=== PATIENT | female | born 1960 | race Two or more races ===

== ENCOUNTER 2023-04-03 09:55 | Outpatient (AMB) | payer OTHER, SELFPAY ==
--- NOTE | 2023-04-03 10:12 | A.OFFVIS_ITS ---
Intake Vital Signs 04/03/23 10:13 Height 5 ft 8 in Weight 237 lb 2 oz BMI 36.1 BP 124/80 Blood Pressure Location Rt brachial Position Sitting Pulse 63 Pulse Source Pulse Oximeter Intake Visit Reasons: Hypertension Medicaid Analyst Required: Yes Medicaid Analyst Name: Cierra [id number] Accompanied by: Self / Same As Patient Allergies No Known Allergies Allergy (Verified 04/03/23 10:07) HPI HPI Comments History of Present Illness Details I had the privilege of seeing kim in follow-up of her history hypertension as well as nephrolithiasis. She has been having ongoing headaches, which has been extensively investigated and follow-up by neurologist in [facility]. She still finds no relief and is frustrated with her ongoing headaches. she was given prednisone which she claims to have caused weight gain. She denies any hematuria, dysuria, flank pain, passage of grit or gravel in the urine. She is not on any hydrochlorothiazide. she tries to maintain herself well hydrated, keep a low-sodium diet. She denies any shortness of breath, chest pain, proximal nocturnal dyspnea, orthopnea, pedal edema, orthostatic symptoms or any other complaints outside her headache during this office visit. Her renal functions had been normal [facility] Medical History (Updated 04/03/23 @ 10:35 by Ryan Clement MD) Calculus of kidney Essential (primary) hypertension Surgical History (Updated 04/03/23 @ 10:19 by Johanna Dey MA) History of hysterectomy History of hand surgery History of ankle surgery History of appendectomy Family History (Updated 04/03/23 @ 10:20 by Johanna Dey MA) Paternal Aunt Diabetes Hypertension Social History (Updated 04/03/23 @ 10:18 by Johanna Dey MA) Alcohol intake: never Patient Tobacco Use Status: Never used Tobacco Physical Exam Vital Signs: Last Vital Signs Pulse 63 04/03/23 10:13 BP 124/80 04/03/23 10:13 BMI result Body Mass Index 36.1 Const General: comfortable and no acute distress Orientation/consciousness: patient oriented x3 HEENT Head: Yes normocephalic Mouth: Normal oral and palatal mucosa present Eyes EOM: EOMs intact bilaterally Neck Neck: Yes supple Resp Auscultation: clear to auscultation bilaterally Cardio Jugular venous distension: no JVD Rate: regular rate GI Palpation (GI): Soft to palpation Auscultation: normal bowel sounds General: Yes no CVA tenderness Back/Spine/Pelvis Back: no CVA tenderness Skin General skin exam: no rashes or lesions noted Neuro General: patient oriented x3 and moves all extremities Extrem General: Yes no pedal edema Assessment & Plan Assessment & Plan (1) Calculus of kidney: Code(s): N20.0 - Calculus of kidney Plan Kim has history of hypertension as well as nephrolithiasis in the past. She was on hydrochlorothiazide at one point which she has discontinued. Her blood pressure is at goal. She has no urinary symptoms. She tries to maintain a low-sodium diet, hydrate herself well and minimize meat. Her urine output is good. Last imaging studies has not shown any renal calculi. She needs to lose weight. Her headaches are being closely monitored by neurologist in [facility]. I did not make any medication changes today. All her questions and concerns were addressed. Time spent retrieving data, documentation and patient encounter 21 minutes. Follow-up given. Orders: Orders Electrolytes Today N20.0 - Calculus of kidney Calcium Today N20.0 - Calculus of kidney Blood Urea Nitrogen Today N20.0 - Calculus of kidney Creatinine Today N20.0 - Calculus of kidney UA and rflx microscopic Today N20.0 - Calculus of kidney Protein Creatinine Ratio, Ur Today N20.0 - Calculus of kidney Coding Level of Care Code Est Pt Level 3 (28188) Diagnoses Calculus of kidney N20.0
[2023-04-03 10:13] VITALS: BP 124/80; PULSE 63; BMI 36.1
== END 2023-04-03 10:42 | disposition home or self-care (01) ==
PROVIDERS: Visit Provider Internal Medicine Nephrology
DX: N20.0 Calculus of kidney (principal)
CPT/HCPCS: 99213

== ENCOUNTER → 2023-04-03 09:55 | Outpatient (BNVA) | payer OTHER, SELFPAY | PROVIDERS: Visit Provider Internal Medicine Nephrology | DX: I10 Essential (primary) hypertension (principal); N20.0 Calculus of kidney | CPT/HCPCS: 99212 ==

== ENCOUNTER 2023-10-09 09:50 | Outpatient (AMB) | payer OTHER, SELFPAY ==
--- NOTE | 2023-10-09 10:14 | HO.NEPHOV_ITS ---
Vital Signs 10/09/23 10:15 Height 5 ft 8 in Weight 224 lb 4 oz BMI 34.1 BP 120/82 Blood Pressure Location Lt brachial Position Sitting Pulse 68 Pulse Source Pulse Oximeter Pulse Oximetry (%) 97 Oxygen Delivery Method Room Air Intake Visit Reasons: 6M follow up/ Conf Napper Tender Required: No Accompanied by: Self / Same As Patient Allergies No Known Allergies Allergy (Verified 10/09/23 10:16) HPI Comments Details: I had the privilege of seeing kim in follow-up of her history hypertension as well as nephrolithiasis. She has been having ongoing headaches, which has been extensively investigated and follow-up by neurologist in [facility]. She still finds no relief and is frustrated with her ongoing headaches. she was given prednisone which she claims to have caused weight gain. She denies any hematuria, dysuria, flank pain, passage of grit or gravel in the urine. She is not on any hydrochlorothiazide. she tries to maintain herself well hydrated, keep a low-sodium diet. She denies any shortness of breath, chest pain, proximal nocturnal dyspnea, orthopnea, pedal edema, orthostatic symptoms or any other complaints outside her headache during this office visit. Her renal functions had been normal [facility] Medical History (Updated 04/03/23 @ 10:35 by Ryan Clement MD) Calculus of kidney Essential (primary) hypertension Surgical History (Updated 04/03/23 @ 10:19 by Johanna Dey MA) History of hysterectomy History of hand surgery History of ankle surgery History of appendectomy Family History (Updated 04/03/23 @ 10:20 by Johanna Dey MA) Paternal Aunt Diabetes Hypertension Social History (Updated 04/03/23 @ 10:18 by Johanna Dey MA) Alcohol intake: never Patient Tobacco Use Status: Never used Tobacco Physical Exam Vital Signs: Last Vital Signs Pulse 68 10/09/23 10:15 BP 120/82 10/09/23 10:15 Pulse Ox 97 10/09/23 10:15 Oxygen Delivery Method Room Air 10/09/23 10:15 BMI result Body Mass Index 34.1 Const General: comfortable and no acute distress Orientation/consciousness: patient oriented x3 HEENT Head: Yes normocephalic Mouth: Normal oral and palatal mucosa present Eyes EOM: EOMs intact bilaterally Neck Neck: Yes supple Resp Auscultation: clear to auscultation bilaterally Cardio Jugular venous distension: no JVD Rate: regular rate GI Palpation (GI): Soft to palpation Auscultation: normal bowel sounds General: Yes no CVA tenderness Back/Spine/Pelvis Back: no CVA tenderness Skin General skin exam: no rashes or lesions noted Neuro General: patient oriented x3 and moves all extremities Extrem General: Yes no pedal edema Results Reviewed Nephrology Results: No Data to Display Assessment & Plan Assessment & Plan (1) Calculus of kidney: Code(s): N20.0 - Calculus of kidney Category: Medical Plan Kim has history of hypertension as well as nephrolithiasis in the past. She was on hydrochlorothiazide at one point which she has discontinued. Her blood pressure is at goal. She has no urinary symptoms. She tries to maintain a low-sodium diet, hydrate herself well and minimize meat. Her urine output is good. Last imaging studies has not shown any renal calculi. She needs to lose weight. Her headaches are being closely monitored by neurologist in [facility]. I did not make any medication changes today. All her questions and concerns were addressed. Orders: Orders Creatinine Today N20.0 - Calculus of kidney Blood Urea Nitrogen Today N20.0 - Calculus of kidney Electrolytes Today N20.0 - Calculus of kidney Calcium Today N20.0 - Calculus of kidney Coding Level of Care Code Est Pt Level 4 (59055) Diagnoses Calculus of kidney N20.0
[2023-10-09 10:15] VITALS: BP 120/82; PULSE 68; O2SAT 97; BMI 34.1
== END 2023-10-09 10:43 | disposition home or self-care (01) ==
PROVIDERS: PCP Nurse Practitioner Family; Visit Provider Internal Medicine Nephrology
DX: N20.0 Calculus of kidney (principal)
CPT/HCPCS: 99214

== ENCOUNTER → 2023-10-09 09:50 | Outpatient (BNVA) | payer OTHER, SELFPAY | PROVIDERS: Visit Provider Internal Medicine Nephrology ==

== ENCOUNTER 2023-10-09 10:30 | Outpatient (REF) | payer OTHER, SELFPAY ==
[2023-10-09 17:48] LABS: Appearance Urine Clear; Color Urine Yellow; Glucose Urine UA Negative (Negative); Leukocyte Esterase Urine Negative (Negative); Nitrite Urine Negative (Negative); PH 7.5 (5.0-9.0); Specific Gravity - Urine 1.015 (1.005-1.025); Urine Blood Negative (Negative); Urine Ketones Negative (Negative); Urine Protein Negative (Neg-Trace)
[2023-10-09 17:51] LABS: Anion Gap 15 (12-20); Blood Urea Nitrogen 15 mg/dL (9-16); Calcium 9.2 mg/dL (8.4-10.2); Carbon Dioxide 25 mmol/L (22-29); Chloride 107 mmol/L (96-108); Estimated Glomerular Filt Rate > 60; Potassium 3.6 mmol/L (3.3-5.1); Sodium 143 mmol/L (135-145)
[2023-10-09 18:21] LABS: Creatinine Urine 78.53 mg/dL; Total Protein Urine Random 8 mg/dL (<12)
== END 2023-10-09 10:31 | disposition home or self-care (01) ==
LOC: HO.HKASLDS 10:30
PROVIDERS: Visit Provider Internal Medicine Nephrology
DX: N20.0 Calculus of kidney (principal)
CPT/HCPCS: 36415; 80051; 81003; 82310; 82565; 82570; 84156; 84520; 99212

== ENCOUNTER 2024-10-26 14:32 | Outpatient (AMB) | payer OTHER, SELFPAY ==
--- NOTE | 2024-10-26 15:15 | HO.NEPHOV ---
Vital Signs 10/26/24 15:17 Height 5 ft 8 in Weight 228 lb BMI 34.7 BP 133/80 Blood Pressure Location Rt brachial Position Sitting Pulse 75 Pulse Source Pulse Oximeter Pulse Oximetry (%) 98 Oxygen Delivery Method Room Air Intake Visit Reasons: 1yr follow up-Conf Tissue Technician Required: Yes Tissue Technician Name: Jacob [id number] Accompanied by: Self / Same As Patient Allergies No Known Allergies Allergy (Verified 10/26/24 15:19) Do you need a note to return to daycare/school/sports/work: No HPI Comments Details: I had the privilege of seeing andrea in follow-up of her history hypertension as well as nephrolithiasis. She has been having ongoing headaches, which has been extensively investigated and follow-up by neurologist in [facility]. She still finds no relief and is frustrated with her ongoing headaches. she was given prednisone which she claims to have caused weight gain. She denies any hematuria, dysuria, flank pain, passage of grit or gravel in the urine. She is not on any hydrochlorothiazide. she tries to maintain herself well hydrated, keep a low-sodium diet. She denies any shortness of breath, chest pain, proximal nocturnal dyspnea, orthopnea, pedal edema, orthostatic symptoms or any other complaints outside her headache during this office visit. Her renal functions had been normal [facility] Medical History Calculus of kidney Essential (primary) hypertension Surgical History History of hysterectomy History of hand surgery History of ankle surgery History of appendectomy Family History Paternal Aunt Diabetes Hypertension Social History Alcohol intake: never Patient Tobacco Use Status: Never used Tobacco Review of Systems Const All systems reviewed & are unremarkable except as noted in HPI and below Physical Exam Vital Signs: Last Vital Signs Pulse 75 10/26/24 15:17 BP 133/80 10/26/24 15:17 Pulse Ox 98 10/26/24 15:17 Oxygen Delivery Method Room Air 10/26/24 15:17 BMI result Body Mass Index 34.7 Const General: comfortable and no acute distress Orientation/consciousness: patient oriented x3 HEENT Head: Yes normocephalic Mouth: Normal oral and palatal mucosa present Eyes EOM: EOMs intact bilaterally Neck Neck: Yes supple Resp Auscultation: clear to auscultation bilaterally Cardio Jugular venous distension: no JVD Rate: regular rate GI Palpation (GI): Soft to palpation Auscultation: normal bowel sounds General: Yes no CVA tenderness Back/Spine/Pelvis Back: no CVA tenderness Skin General skin exam: no rashes or lesions noted Neuro General: patient oriented x3 and moves all extremities Extrem General: Yes no pedal edema Results Reviewed Nephrology Results: Sodium, (135-145) 143 mmol/L 10/09/23 Potassium, (3.3-5.1) 3.6 mmol/L 10/09/23 Chloride, (96-108) 107 mmol/L 10/09/23 Carbon Dioxide, (22-29) 25 mmol/L 10/09/23 BUN, (9-16) 15 mg/dL 10/09/23 Creatinine, (0.5-1.4) 0.72 mg/dL 10/09/23 Calcium, (8.4-10.2) 9.2 mg/dL 10/09/23 Urine Protein, (Neg-Trace) Negative mg/dL 10/09/23 Urine Creatinine 78.53 mg/dL 10/09/23 Protein/Creatinin Ratio, (<0.2) 0.10 10/09/23 Assessment & Plan Assessment & Plan (1) Calculus of kidney: Code(s): N20.0 - Calculus of kidney Category: Medical Plan Andrea has history of hypertension as well as nephrolithiasis in the past. She was on hydrochlorothiazide at one point which she has discontinued. Her blood pressure is at goal. She has no urinary symptoms. She tries to maintain a low-sodium diet, hydrate herself well and minimize meat. Her urine output is good. Last imaging studies has not shown any renal calculi. She needs to lose weight. Her headaches are being closely monitored by neurologist in [facility]. I did not make any medication changes today. All her questions and concerns were addressed. Orders: Orders Creatinine 1 Year N20.0 - Calculus of kidney Blood Urea Nitrogen 1 Year N20.0 - Calculus of kidney Calcium 1 Year N20.0 - Calculus of kidney Protein Creatinine Ratio, Ur 1 Year N20.0 - Calculus of kidney Electrolytes 1 Year N20.0 - Calculus of kidney UA and rflx microscopic 1 Year N20.0 - Calculus of kidney Coding Level of Care Code Est Pt Level 4 (09465) Diagnoses Calculus of kidney N20.0
[2024-10-26 15:17] VITALS: BP 133/80; PULSE 75; O2SAT 98; BMI 34.7
== END 2024-10-26 15:40 | disposition home or self-care (01) ==
LOC: HO.HKAS 14:33
PROVIDERS: PCP Nurse Practitioner Family; Visit Provider Internal Medicine Nephrology
DX: N20.0 Calculus of kidney (principal)
CPT/HCPCS: 99214

== ENCOUNTER → 2024-10-26 14:32 | Outpatient (BNVA) | payer OTHER, SELFPAY | PROVIDERS: PCP Nurse Practitioner Family; Visit Provider Internal Medicine Nephrology | DX: N20.0 Calculus of kidney (principal) | CPT/HCPCS: 99212 ==

== ENCOUNTER 2024-12-30 11:18 | Outpatient (AMB) | payer MEDICAID, SELFPAY ==
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
--- OUTSIDE RECORDS SUMMARY | 2024-12-28 23:59 | XMS_ITS | Continuity of Care Document ---
Author Organization [facility] Address [address] [place] [address]- Care Team Providers Care Pest Control Applicator Name Role Phone Rosa M RESTAURANT HOURLY TEAM MEMBER, Javier Castanon Primary Care Physicia n Encounter [facility] Date(s): 11/28/24 - 12/28/24 [facility] [address] [place] [id number] Encounter Type: Triage Allergies, Adverse Reactions, Alerts [...] 0 Refills, Maintenance, 11/19/24 4:24:00 PM EDT, [id number], 173, cm, 11/15/24 12:57:00 EDT, Height, 102.7, [...] Maintenance, 07/02/24 12:14:00 PM EST, [id number], 90, TAKE 1 TABLET BY MOUTH EVERY [...] each, 1 Refills, Maintenance, 09/16/24 8:42:00 AMEDT, [facility]/pharmacy #[id number], Partial fill upon patient request if [...] 10:55:00 AM EDT, Route to Pharmacy Electronically, [facility]/pharmacy #[id number], Partial fill upon patient request if [...] Refills, Maintenance, 07/05/24 12:06:00 PM EST, Tablet, [facility]/pharmacy #[id number], Partial fill upon patient request if [...] Refills, Maintenance, 12/16/24 4:37:00 PM EDT, Tablet, [id number], Partial fill uponpatient request if the [...] o user in household: No entered on: 9/18/15 Sex Sex Representation Female (finding) Patient Care team information Care Team Personnel Name: Ryan Clement MD Position: [facility] Renal MD Member Role: Lifetime Consulting Physician Address: [address] [place] [address]- [place] Telecom: Name: Johanna Dey Position: [facility] AMB Nurse Member Role: Lifetime Consulting Physician Name: Javier Mederos NP Position: [facility] PCO Associate Professional Member Role: PCP Address: [address] [place] [address]- Telecom: Care Team Related Persons Name: LEAH MACE Name: FLORIN MACE Insurance Providers Guarantor name: [facility] [employer] [facility] Information #: 1 Payer: [employer] Payer Identifier: BEE Member Number: [id number] Group Number: [id number] Subscriber Identifier: [id number] Relationship to Subscriber: self Coverage Type: MEDICAID Coverage Verification Date: NA Telecom: Address:
--- OUTSIDE RECORDS SUMMARY | 2024-12-30 09:00 | XMS_ITS | Encounter Summary ---
Author Organization [facility] Address [address] [place] [address] Care Team Providers Care Circulation Representative Name Role Phone Bruno Becker MD Primary Care Provider [phone] Reason for Visit * Reason Comments Dental Restorative Encounter Details Date Type Department Care Team ([facility] st Contact Info) Description 12/30/2024 9:00 AM EDT Office Visit [facility] [address] [place] [phone] Mona Kemp, DDS [address] [place] [address] Social History Tobacco Use Types Packs/Day Years Used Date Smoking Tobacco: Never Smokeless Tobacco: Never Alcohol Use Standard Drinks/Week Comments No 0 (1 standard drink = 0.6 oz pur e alcohol) Social Connections Answer Date Recorded Connectedness 0 01/21/2024 Financial Resource Strain Answer Date R ecorded Financial Resource Strain 0 2018 Stress Answer Date Recorded Stress 0 12/26/2018 Physical Activity Answer Date Recorded Physical Activity 0 12/26/2018 Food Insecurity Answer Date Recorded Food 0 01/29/2024 Transportation Needs Answer Date Record ed Transportation 0 12/26/2018 Housing Stability Answer Date Recorded Housing 0 12/26/2018 Safety and Environment Answer Date El rded Safety 0 12/26/2018 Utilities Answer Date Recorded Utilities 0 12/26/2018 Employment Answer Date Recorded Stress 0 01/21/2024 Comments No Sex and Gender Information Value Date Recorded Sex Assigned at Female 03/24/2017 12:33 PM PST Legal Sex Female 11:36 AM PDT Gender Identity Female 03/24/2017 12:33 PM PST Sexual Orientation Straight 03/24/2017 12 :33 PM PST documented as of this encounter Last Filed Vital Signs Vital Sign Reading Time Taken Comments Blood Pressure 144/93 12/30/2024 9:19 AM EDT Pulse 59 12/30/2024 9:19 AM EDT Temperature - - Respiratory Rate - - Oxygen Saturation - - Inhaled Oxygen Concentration - - Weight - - Height - - Body Mass Index - - documented in this encounter Progress Notes * Mona Kemp DDS - 12/30/2024 10:51 AM EDT Restorative Subjective Kim Dennison, 64 year old female, presents alone for restorative. President [place]: No Chief Complaint Patient presents with Dental Restorative Objective RMHx: Yes Vitals: Vitals: 12/30/24 0917 12/30/24 0919 BP: (!) 157/97 (!) 144/93 Pulse: 64 59 BP Site: Left Wrist Left Wrist BP Position: Sitting Sitting BP Cuff Size: Regular Adult Regular Adult Pain Score: 0 - No pain 0 - No pain Assessment Dx: K02.9 Recurrent dental caries extending into dentin (primary encounter diagnosis) Dx Details (Clinical Decision-Making): Tooth# 3 MODL secondary decay Plan Informed Consent/PARQ (Procedure, Alternatives, Risks, Questions): Patient confirms informed consent using PARQ. Dental procedures in this visit D9450 - CASE PRESENTATION SUBS DTL & EXTENSIVE TX PLN (Completed) Service provider: Mona Kemp DDS Billing provider: Mona Kemp DDS D2394 - RESIN COMPOS - FOUR OR MORE SURFACES POSTERIOR 3 MODL (Completed) Service provider: Mona Kemp DDS Billing provider: Mona Kemp DDS Topical Anesthetic: 20% topical benzocaine Local Anesthetic: 1 carpule 2% lidocaine with 1:100k epi Injection administered: Infiltration Isolation used: Cotton roll and Dri-Angle Excavation of caries and old restorative material completed. No pulpal exposure, but very deep and close to pulp, Dycal liner placed, [place] Tribe-lite liner placed Details: Etch, Marlow Shade: A3. Contour/Romanian: Yes Verified occlusion, contacts, and floss Post-Op Information Given: written Referral: No orders of the following type(s) were placed in this encounter: Referral. Rx: No orders of the defined types were placed in this encounter. Behavior: Excellent DA: sharon [place]: Recall Exam - 6 months documented in this encounter Miscellaneous Notes * Patient Instructions - Mona Kemp DDS - 12/30/2024 10:10 AM EDT If you are not able to keep your appointment please call 24-48 hours before your appointment to cancel or reschedule. documented in this encounter Plan of Treatment Upcoming Encounters Date Type Department Care Team (Late st Contact Info) Description 04/18/2025 9:00 AM EST Office Visit [facility] [address] [place] [address] Ry Celeste, [facility] [address] [place] [address] documented as of this encounter Procedures Procedure Name Priority Date/Time Associated Diagnosis Comments CASE PRESENTATION SUBS DTL & EXTENSIVE TX PLN Routine 12/30/2024 9:00 AM EDT Recurrent dental caries extending into dentin 3 MODL RESIN COMPOS - FOUR OR MORE SURFACES POSTERIOR Routine 12/30/2024 9:00 AM EDT Recurrent dental caries extending into dentin documented in this encounter Visit Diagnoses Diagnosis Recurrent dental caries extending into dentin- Primary documented in this encounter Care Teams Circulation Representative Relationship Specialty Start Date End Date Bruno Becker MD [address] [place] [address] PCP - General Internal Medicine 04/03/21 documented as of this encounter
[2024-12-30 11:29] VITALS: BP 130/81; PULSE 59; O2SAT 96; BMI 34.2
--- NOTE | 2024-12-30 11:29 | HO.NEPHOV ---
Vital Signs 12/30/24 11:29 Height 5 ft 8 in Weight 225 lb 2 oz BMI 34.2 BP 130/81 Blood Pressure Location Lt brachial Position Sitting Pulse 59 Pulse Source Pulse Oximeter Pulse Oximetry (%) 96 Oxygen Delivery Method Room Air Intake Visit Reasons: Abnormal labs/ Per Breanna Therapeutic Consultant Required: Yes Therapeutic Consultant Language: Minister Helper Services: Therapeutic Consultant Present Therapeutic Consultant Name: Ted [id number] Information Interpreted: clinical only Accompanied by: Other Relationship Allergies No Known Allergies Allergy (Verified 12/30/24 11:29) HPI Comments Details: I had the privilege of seeing kim in follow-up of her history hypertension as well as nephrolithiasis. She has been having ongoing headaches, which has been extensively investigated and follow-up by neurologist in [facility]. She still finds no relief and is frustrated with her ongoing headaches. she was given prednisone which she claims to have caused weight gain. She denies any hematuria, dysuria, flank pain, passage of grit or gravel in the urine. She is not on any hydrochlorothiazide. she tries to maintain herself well hydrated, keep a low-sodium diet. She denies any shortness of breath, chest pain, proximal nocturnal dyspnea, orthopnea, pedal edema, orthostatic symptoms or any other complaints outside her headache during this office visit. She was recently seen in [facility] for back pain and had undergone CTA. She also had a renal USS for F/U renal cyst. [facility] Medical History Calculus of kidney Essential (primary) hypertension Surgical History History of hysterectomy History of hand surgery History of ankle surgery History of appendectomy Family History Paternal Aunt Diabetes Hypertension Social History Alcohol intake: never Patient Tobacco Use Status: Never used Tobacco Review of Systems Const All systems reviewed & are unremarkable except as noted in HPI and below Physical Exam Vital Signs: Last Vital Signs Pulse 59 12/30/24 11:29 BP 154/100 H 12/30/24 11:29 Pulse Ox 96 12/30/24 11:29 Oxygen Delivery Method Room Air 12/30/24 11:29 BMI result Body Mass Index 34.2 Const General: comfortable and no acute distress Orientation/consciousness: patient oriented x3 HEENT Head: Yes normocephalic Mouth: Normal oral and palatal mucosa present Eyes EOM: EOMs intact bilaterally Neck Neck: Yes supple Resp Auscultation: clear to auscultation bilaterally Cardio Jugular venous distension: no JVD Rate: regular rate GI Palpation (GI): Soft to palpation Auscultation: normal bowel sounds General: Yes no CVA tenderness Back/Spine/Pelvis Back: no CVA tenderness Skin General skin exam: no rashes or lesions noted Neuro General: patient oriented x3 and moves all extremities Extrem General: Yes no pedal edema Assessment & Plan Assessment & Plan (1) Calculus of kidney: Code(s): N20.0 - Calculus of kidney Category: Medical (2) Renal cyst: Code(s): N28.1 - Cyst of kidney, acquired Category: Medical Plan Kim has history of hypertension as well as nephrolithiasis in the past. She was on hydrochlorothiazide at one point which she has discontinued. She needs to avoid NSAID's. She has no urinary symptoms. She tries to maintain a low-sodium diet, hydrate herself well and minimize meat. Her urine output is good. Last imaging studies has not shown any renal calculi. She needs to lose weight. Her headaches are being closely monitored by neurologist in [facility]. Her renal USS results were reviewed. I did not make any medication changes today. All her questions and concerns were addressed. Orders: Orders Blood Urea Nitrogen 6 Months N20.0 - Calculus of kidney, N28.1 - Cyst of kidney, acquired Creatinine 6 Months N20.0 - Calculus of kidney, N28.1 - Cyst of kidney, acquired UA and rflx microscopic 6 Months N20.0 - Calculus of kidney, N28.1 - Cyst of kidney, acquired Electrolytes 6 Months N20.0 - Calculus of kidney, N28.1 - Cyst of kidney, acquired Coding Level of Care Code Est Pt Level 4 (47364) Diagnoses Calculus of kidney N20.0 Renal cyst N28.1
--- OUTSIDE RECORDS SUMMARY | 2024-12-30 12:38 | XMS_ITS | Clinical Summary ---
Author Organization [facility] Address [address] [place] [address] Care Team Providers Care Sweeping Compound Blender Name Role Phone Unavailable Primary Care Provider Unavailabl e Social History Tobacco Use Types Packs/Day Years Used Date Smoking Tobacco: Never Assessed Comments Unknown Sex and Gender Information Value Date Recorded Sex Assigned at Not on file Legal Sex Female 9:12 PM EST Gender Identity Not on file Sexual Orientation Not on file Plan of Treatment Health Maintenance Due Date Last Done Comments Cervical Cancer Screening: Pap Smear 12/10/1980 Pneumococcal Vaccine: 50+ Years (1 of 1 - PCV) 12/10/2009 Zoster Vaccines (1 of 2) 12/10/2009 Hepatitis B Vaccines (3 of 3 - 19+ 3-dose series) 04/29/2013 12/25/2012, 10/28/2012 RSV Immunization Adult Patients (1 - Risk 60-74 years 1-dose series) 2019 Cholesterol Screening (Lipid Panel) 04/06/2022 03/24/2017 Colorectal Cancer Screening: Colonoscopy 04/06/2022 Hepatitis C Screening 04/06/2022 Osteoporosis Screening (Bone Density Screening) 04/06/2022 Social Influencers of Health Screening 04/06/2022 COVID-19 Vaccine ( - season) 2024 Depression Screening 05/05/2024 DTaP,Tdap,and Td Vaccines (4 - Td or Tdap) 10/19/2024 10/19/2014, 09/16/2011, 03/31/1996 Falls Risk Assessment 12/10/2024 Hypertension/CHF/CAD Annual BMP Blood Test 12/21/2024 03/24/2017 Influenza Vaccine (#1) 2025 , 03/09/2020, 02/18/2019, Additional history exists Breast Cancer Screening 01/05/2026 01/06/20 24, 11/07/2022, 11/01/2021, Additional history exists MMR Vaccines Aged Out 05/18/1996, 04/12/1996 No lo nger eligible based on patient's age to complete this topic Hepatitis A Vaccines Aged Out 10/28/2012 No long er eligible based on patient's age to complete this topic HIB Vaccines Aged Out No longer eligi ble based on patient's age to complete this topic HPV Vaccines Aged Out No longer eligi ble based on patient's age to complete this topic IPV Vaccines Aged Out No longer eligi ble based on patient's age to complete this topic Meningococcal ACWY Vaccine Aged Out N o longer eligible based on patient's age to complete this topic Meningococcal B Vaccine Aged Out No l onger eligible based on patient's age to complete this topic RSV Immunization Patients Under 20 months Aged Out No longer eligible based on patient's age to complete this topic Varicella Vaccines Aged Out No longer eligible based on patient's age to complete this topic Procedures Procedure Name Priority Date/Time Associated Diagnosis Comments [facility] SCREENING DIGITAL Routine 01/06/2024 1:47 PM EDT Encounter for screening mammogram for malignant neoplasm of breast from Last 3 Months or Most Recently Relevant to Health Maintenance Results * PANDA SCREENING DIGITAL (01/06/2024 1:47 PM EDT) Anatomical Region Laterality Modality Mammography 01/06/2024 12:4 7 PM EDT Narrative 01/06/2024 1:47 PM EDT [facility] Diagnostic Imaging Department [address] [place] [id number] Patient: MAZINRAMAKIM /Age/Sex: 1960 - 63 - F Unit#: [id number] Location/Status: SPDIMAM/REG CLI Mnemonic/Ordering Site: DIGSC/SPMAM Ordering Physician: JAVIER PALOMARES NP [facility] Screening Digital - 01/06/24 - 1313 Report Status:Signed EXAM: [facility] Screening Digital EXAM DATE AND TIME: 01/06/2024 1:14 PM HISTORY: Screening. Right breast biopsy in 2017, pathology benign. COMPARISON: 11/07/22, 11/01/21, 10/23/20, 10/22/19 TECHNIQUE: Bilateral digital breast tomosynthesis was performed in the CC and MLO projections. Computer aided detection with Fit&Color 3D 3.1 was employed. TISSUE DENSITY: b. There are scattered areas of fibroglandular density. FINDINGS: No suspicious masses, grouped microcalcifications, or areas of architectural distortion are seen. A biopsy marker is again seen in the anterior right breast. The skin and vascularity are unremarkable. IMPRESSION: Stable mammographic appearance of the breasts. No evidence of malignancy is seen. A negative mammogram in the presence of a clinically suspicious palpable abnormality does not preclude the possibility of malignancy or alter the indications for biopsy. BI-RADS: Category 1: Negative RECOMMENDATION(S): 1: Routine screening mammogram BILATERAL in 1 year. Dictating Physician: BRIANNA PARTIDA MD Electronically Signed by: BRIANNA PARTIDA MD Dic Date/Time: 01/06/24 1346 Sign date/Time: 01/06/24 1347 Procedure Note Brianna Partida MD - 02/18/2024 [facility] Diagnostic Imaging Department [address] [place] [address] Patient: KIM DENNISON.O.B./Age/Sex: 1960 - 63 - F Unit#: [id number] Location/Status: [facility]/REG CLI Mnemonic/Ordering Site: [facility] Ordering Physician: JAVIER PALOMARES NP [facility] Screening Digital - 01/06/24 - 1313 Report Status:Signed EXAM: [facility] Screening Digital EXAM DATE AND TIME: 01/06/2024 1:14 PM HISTORY: Screening. Right breast biopsy in 2017, pathology benign. COMPARISON: 11/07/22, 11/01/21, 10/23/20, 10/22/19 TECHNIQUE: Bilateral digital breast tomosynthesis was performed in the CCand MLO projections. Computer aided detection with Fit&Color 3D 3.1was employed. TISSUE DENSITY: b. There are scattered areas of fibroglandular density. FINDINGS: No suspicious masses, grouped microcalcifications, or areas ofarchitectural distortion are seen. A biopsy marker is again seen in the anterior rightbreast. The skin and vascularity are unremarkable. IMPRESSION: Stable mammographic appearance of the breasts. No evidence of malignancyis seen. A negative mammogram in the presence of a clinically suspicious palpable abnormality does not preclude the possibility of malignancy or alter the indications for biopsy. BI-RADS: Category 1: Negative RECOMMENDATION(S): 1: Routine screening mammogram BILATERAL in 1 year. Dictating Physician: BRIANNA PARTIDA MD Electronically Signed by: BRIANNA PARTIDA MD Dic Date/Time: 01/06/24 1346 Sign date/Time: 01/06/24 1347 us Javier Mederos NP IMG BI PROCEDURES Final Res ult from Last 3 Months or Most Recently Relevant to Health Maintenance Advance Directives Documents on File Type Date Recorded Patient Senior Application Programmer Expl anation Health Care Decision (hx) 02/04/2012 AD GARCIA DIRECTIVE Health Care Decision (hx) 02/04/2012 AD GACRIA DIRECTIVE Health Care Decision (hx) 02/04/2012 AD GARCIA DIRECTIVE Health Care Decision (hx) 02/04/2012 AD GARCIA DIRECTIVE Health Care Decision (hx) 02/04/2012 AD GARCIA DIRECTIVE Health Care Decision (hx) 02/04/2012 AD GARCIA DIRECTIVE Health Care Decision (hx) 02/04/2012 AD GARCIA DIRECTIVE Health Care Decision (hx) 02/04/2012 AD GARCIA DIRECTIVE Health Care Decision (hx) 02/04/2012 AD GARCIA DIRECTIVE Health Care Decision (hx) 02/04/2012 AD GARCIA DIRECTIVE Health Care Decision (hx) 02/04/2012 AD GARCIA DIRECTIVE
--- OUTSIDE RECORDS SUMMARY | 2024-12-30 12:38 | XMS_ITS | Encounter Summary ---
Author Organization [facility] Address [address] [place] [address] Care Team Providers Care Wall And Floor Tiler Name Role Phone Bruno Becker MD Primary Care Provider Encounter Details Date Type Department Care Team ([facility] st Contact Info) Description 02/26/2022 Dental Interim Note [facility] [address] [place] [address] Shannon Sanchez DDS [address] [place] [address] Social History Tobacco Use Types Packs/Day Years Used Date Smoking Tobacco: Never Smokeless Tobacco: Never Alcohol Use Standard Drinks/Week Comments No 0 (1 standard drink = 0.6 oz pur e alcohol) Social Connections Answer Date Recorded Social Connections and Isolation 0 12/26/2018 Financial Resource Strain Answer Date R ecorded Financial Resource Strain 0 2018 Stress Answer Date Recorded Stress 0 12/26/2018 Physical Activity Answer Date Recorded Physical Activity 0 12/26/2018 Food Insecurity Answer Date Recorded Food 0 12/26/2018 Transportation Needs Answer Date Record ed Transportation 0 12/26/2018 Housing Stability Answer Date Recorded Housing 0 12/26/2018 Safety and Environment Answer Date El rded Safety 0 12/26/2018 Utilities Answer Date Recorded Utilities 0 12/26/2018 Employment Answer Date Recorded Employment 0 12/26/2018 Comments No Sex and Gender Information Value Date Recorded Sex Assigned at Female 03/24/2017 12:33 PM PST Legal Sex Female 11:36 AM PDT Gender Identity Female 03/24/2017 12:33 PM PST Sexual Orientation Straight 03/24/2017 12 :33 PM PST COVID-19 Exposure Response Date Recorded In the last 10 days, have yo u been in contact with someone who was confirmed or suspected to have Coronavirus/COVID-19? No / Unsure 02/26/2022 1:32 PM EDT documented as of this encounter Plan of Treatment Upcoming Encounters Date Type Department Care Team (Late st Contact Info) Description 04/18/2025 9:00 AM EST Office Visit [facility] [address] [place] [phone] Ry Celeste, [facility] [address] [place] [address] documented as of this encounter Procedures Procedure Name Priority Date/Time Associated Diagnosis Comments 3 MOD AMALGAM - WISDOM (NON BILLABLE) Routine 02/26/2022 12:00 AM EDT 15 DO AMALGAM - WISDOM (NON BILLABLE) Routine 02/26/2022 12:00 AM EDT 19 O AMALGAM - WISDOM (NON BILLABLE) Routine 02/26/2022 12:00 AM EDT 30 O AMALGAM - WISDOM (NON BILLABLE) Routine 02/26/2022 12:00 AM EDT 2 DO AMALGAM - WISDOM (NON BILLABLE) Routine 02/26/2022 12:00 AM EDT documented in this encounter Visit Diagnoses Not on filedocumented in this encounter Care Teams Wall And Floor Tiler Relationship Specialty Start Date End Date Bruno Becker MD [address] [place] [address] PCP - General Internal Medicine 04/03/21 documented as of this encounter
--- OUTSIDE RECORDS SUMMARY | 2024-12-30 12:39 | XMS_ITS | Clinical Summary ---
Author Organization [facility] Address [address] [place] [address] Care Team Providers Care Health And Physical Education Teacher Name Role Phone Bruno Becker MD Primary Care Provider [phone] Source Comments PLEASE NOTE, if this patient is a minor, it may be UNLAWFUL to discuss sensitive information that is contained in these records (such as FAMILY PLANNING, MENTAL HEALTH or SUBSTANCE ABUSE) with the minor patient's parent or other person without the patient's specific authorization.[facility] Allergies No known active allergies Medications FLUoxetine (PROZAC) 20 mg capsuleIndicati ons:Anxiety and depression Take 1 Cap by mouth once daily. PER PSYCH. 03/10/2013 Active LORazepam (ATIVAN) 0.5 mg tabletIndicatio ns:Anxiety and depression Take 1 Tab by mouth once daily as needed for anxiety. PER PSYCH. 03/10/2013 Active QUEtiapine (SEROQUEL) 25 mg tabletIndicatio ns:Insomnia Take 1 Tab by mouth nightly at bedtime. PER PSYCH. 03/10/2013 Active loratadine (CLARITIN) 10 mg tabletIndicatio ns:Allergic rhinitis due to allergen Take 1 Tab by mouth once daily as needed for allergies. 30 Tab 4 06/08/2013 Active fluticasone (FLONASE) 50 mcg/actuation nasal sprayIndication s:Seasonal allergic rhinitis Place 1 [place] into the nostril(s) once daily. 16 g 6 02/28/2014 Active hydrochlorothia zide (MICROZIDE) 12.5 mg capsuleIndicati ons:HTN (hypertension) Take 1 Cap by mouth once daily. 30 Cap 6 02/28/2014 Active ibuprofen (ADVIL,MOTRIN) 800 mg tabletIndicatio ns:Costochondra l chest pain Take 1 Tab by mouth 3 (three) times daily as needed for pain. Take with food. 90 Tab 0 09/01/2014 Active SUPER PAIN RELIEF 250-250-65 mg per tablet TAKE 1 TABLET BY MOUTH EVERY 6 HOURS NEEDED FOR PAIN 30 Tab 0 09/05/2014 Active diclofenac potassium (CATAFLAM) 50 mg tablet Take 1 Tab by mouth 2 (two) times daily. 60 Tab 1 10/17/2014 Active ranitidine (ZANTAC) 150 mg tablet TAKE 1 TABLET BY MOUTH TWICE A DAY 60 Tab 3 01/01/2015 Active cyclobenzaprine (FLEXERIL) 5 mg tabletIndicatio ns:Muscle spasm Take 1 Tablet by mouth 2 (two) times daily as needed for muscle spasms 20 Tablet 08/16/2022 Active chlorhexidine (PERIDEX) 0.12 % solutionIndicat ions:Acute gingivitis, non-plaque induced Swish and spit 15 mL 2 (two) times daily 473 mL 08/16/2022 Active Active Problems Problem Noted Date Diagnosed Date Primary osteoarthritis of right knee 09/08/2018 Overview (09/08/2018): Saw [facility] on 09-01-18 - trial injections. Multinodular goiter 08/25/2014 Overview (09/27/2014): CT chest 08/09/14 revealed Mildly enlarged, nodular thyroid gland, multinodular goiter. Will refer for thyroid US. ultrasound of thyroid done 09/15/14 which revealed borderline thyromegaly, indeterminate thyroid nodules and indeterminate dominate partially calcified right thyroid lobe mass with substernal extension; ultrasound-guided tissue sampling may be considered. Will refer to endo. Microscopic hematuria 07/21/2014 Overview (07/21/2014): F/u urology. 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 Referred CT chest. Chest CT 08/09/14 at [facility] 1. Tiny bilateral pulmonary nodules, all 5 mm or less in diameter, probably benign. Annual screening recommended in 6-12 months. 2. Mildly enlarged, nodular thyroid gland, multinodular goiter. Will refer for thyroid US. Tympanic membrane perforation, left 06/30/2013 Allergic rhinitis due to allergen 10/28/2012 HTN (hypertension) Anxiety and depression Overview (03/10/2013): On psych f/u Insomnia Overview (03/10/2013): On psych f/u GERD (gastroesophageal reflux disease) Encounters Date Type Department Care Team Description 12/30/2024 9:00 AM EDT Office Visit [address] [phone] Mona Kemp DDS 10/14/2024 1:40 PM EDT Office Visit [address] [phone] Ry Celeste RDH from Last 3 Months Immunizations Immunization Administration Dates Next Due Flu, Preservative Free 03/24/2017 HEP A-HEP B (TWINRIX) 10/28/2012 Hep B, Adult/Adol (ECHNPDX-W-VPSON/RECOMBIVAX-AD ULT) 12/25/2012 INFLUENZA, SEASONAL, INJECTABLE 02/28/2014,01/28 INFLUENZA, SEASONAL, INJECTABLE, PRESERVATIVE FR EE 01/18/2013 MMR (MMR II/Priorix) 05/18/1996,04/12/1996 TDAP 09/16/2011 Td (adult),2 Lf tetanus toxo id (TDVAX), preservative free 03/31/1996 Family History Medical History Relation Name Comments Diabetes Father Heart Problems Father Hypertension Father Diabetes Mother Heart Problems Mother Hypertension Mother Stroke Mother Cancer Paternal Aunt BREAST Relation Name Status Comments Father (Age ?) STROKE Mother Alive Paternal Aunt Social History Tobacco Use Types Packs/Day Years [...] Orientation Straight 03/24/2017 12 :33 PM PST Last Filed Vital Signs Vital Sign Reading Time Taken Comments Blood Pressure 144/93 12/30/2024 9:19 AM EDT Pulse 59 12/30/2024 9:19 AM EDT Temperature 36.7 C (98 F) 03/24/2017 1:27 PM EST Respiratory Rate 18 03/24/2017 1:27 PM EST Oxygen Saturation - - Inhaled Oxygen Concentration - - Weight 87.5 kg (193 lb) 03/31/2017 1:31 PM EST Height 170.2 cm (5' 7 ) 03/31/2017 1:31 PM EST Body Mass Index 30.23 03/31/2017 1:31 PM EST Plan of Treatment Upcoming Encounters Date Type Department Care Team (Late st Contact Info) Description 04/18/2025 9:00 AM EST Office Visit [facility] [address] [place] [phone] Ry Celeste, [facility] [address] [place] [address] Health Maintenance Due Date Last Done Comments Anxiety Screening 1960 Depression Monitoring 1960 Tobacco Screening 1959 12/30/2024 CT Colonography 12/10/2004 Colonoscopy 12/10/2004 Fecal DNA 12/10/2004 Flexible Sigmoidoscopy 12/10/2004 Imm-Pneumococcal 50+ (1 of 1 - PCV) 12/10/2009 Imm-Zoster, Recombinant (1 of 2) 12/10/2009 Imm-Hepatitis B (3 of 3 - 19 + 3-dose series) 04/29/2013 12/25/2012, 10/28/2012 Annual Wellness (Adult): Ind icated (All Coverage) 03/24/2018 03/24/2017, 02/28/2014, 06/02/2013, Additional history exists Diabetes Screening 03/24/2018 03/24/2017, 1 , 12/29/2013, Additional history exists Lipid Screening 03/24/2018 03/24/2017 Breast Cancer Screening (Mammogram) 02/19/2019 02/19/2017, 07/04/2014, 06/30/2013 [id number] ( - season) 2024 Alcohol and Drug Screen 05/05/2024 03/24/2017, 09/01 Imm-DTaP/Tdap/Td (3 - Td or Tdap) 10/19/2024 10/19/2014, 09/16/2011, 03/31/1996 Bone Density Screening 12/10/2024 Falls Prevention 12/10/2024 Imm-Influenza (#1) 2025 04/14/2023, 1 06/01/2021, 03/15/2021, Additional history exists Dental BW 10/16/2025 10/14/2024, 12/04, 05/06/2023, Additional history exists Dental Examination 10/16/2025 10/14/2024, 0 12/25/2023, 05/06/2023, Additional history exists Dental Perio Charting 10/16/2025 10/14/2024 Dental Prophy 10/16/2025 10/14/2024, 12/04, 05/06/2023, Additional history exists Colorectal Cancer Screening 02/20/2026 FIT/gFOBT 02/20/2026 02/21/2016 Dental FMX/Pano 06/08/2027 06/06/2022 HIV Screening Completed 03/24/2017 Hepatitis C Screening Completed 03/24/2017 Procedures Procedure Name Priority Date/Time Associated Diagnosis Comments 3 MODL RESIN COMPOS - FOUR OR MORE SURFACES POSTERIOR Routine 12/30/2024 9:00 AM EDT Recurrent dental caries extending into dentin CASE PRESENTATION SUBS DTL & EXTENSIVE TX PLN Routine 12/30/2024 9:00 AM EDT Recurrent dental caries extending into dentin DENTAL CASE MANAGEMENT - MOTIVATIONAL INTV Routine 10/14/2024 1:40 PM EDT Encounter for dental examination PROPHYLAXIS - ADULT Routine 10/14/2024 1 :40 PM EDT Encounter for dental examination BITEWINGS - FOUR RADIOGRAPHIC IMAGES Routine 10/14/2024 1:40 PM EDT Encounter for dental examination COMP PERIODONTAL EVALUATION - NEW/EST PATIENT Routine 10/14/2024 1:40 PM EDT Encounter for dental examination PERIODIC ORAL EVALUATION ESTABLISHED PATIENT Routine 10/14/2024 1:40 PM EDT Encounter for dental examination CARIES RISK ASSESSMENT & DOC FINDING MOD RISK Routine 10/14/2024 1:40 PM EDT Encounter for dental examination NUTRITIONAL COUNSELING CONTROL OF DENTAL DISEASE Routine 10/14/2024 1:40 PM EDT Encounter for dental examination ORAL HYGIENE INSTRUCTIONS Routine 10/14/2024 1:40 PM EDT Encounter for dental examination ORAL CANCER SCREENING Routine 10/14/2024 1:40 PM EDT Encounter for dental examination CASE PRESENTATION SUBS DTL & EXTENSIVE TX PLN Routine 10/14/2024 1:40 PM EDT Encounter for dental examination Full INTRAORAL - COMP SERIES OF RADIOGRAPHIC IMAGES Routine 06/06/2022 1:40 PM EST Gingivitis, chronic, plaque induced ANTIBODY HIV-1&HIV-2 SINGLE RESULT Routine 03/24/2017 2:13 PM EST Risky sexual behavior HEPATITIS A,B,C PANEL Routine 03/24/2017 2:13 PM EST Risky sexual behavior COMPREHENSIVE METABOLIC PANEL Routine 03/24/2017 2:13 PM EST Routine general medical examination at a health care facility LIPID PANEL Routine 03/24/2017 2:13 PM EST Routine general medical examination at a health care facility from Last 3 Months or Most Recently Relevant to Health Maintenance Results * HEPATITIS A,B,C PANEL (03/24/2017 2:13 PM EST) [facility] HEPATITIS B SURFACE ANTIBODY NEGATIVE NEGATIVE [facility] HEPATITIS B SURFACE ANTIGEN NEGATIVE NEGATIVE [facility] Comment: Over the counter supplements containing high doses of biotin may interfere with this assay. If interference is suspected, patients shoud be retested after refraining from biotin supplements for 72 hours. HEPATITIS C VIRUS DIAGNOSTIC NEGATIVE NEGATIVE [facility] HEPATITIS A ANTIBODY TOTAL NEGATIVE NEGATIVE [facility] Comment: Over the counter supplements containing high doses of biotin may interfere with this assay. If interference is suspected, patients shoud be retested after refraining from biotin supplements for 72 hours. HEPATITIS B CORE ANTIBODY NEGATIVE NEGATIVE [facility] Blood specimen (specimen) Blood / Unknown 03/24/2017 2:13 PM EST 03/24/2017 2:24 PM EST Maureen [facility] - 03/24/2017 6:47 PM EST [employer] [address] [place] [address] PT ID [id number] ORD# [id number] [facility] - BLOOD DRAW Edited Result - Final [address] [address], [place] [phone] * HIV-1 & HIV-2 ANTIBODIES (03/24/2017 2:13 PM EST) [facility] HIV 1 AND 2 ANTIBODY SCREEN NEGATIVE NEGATIVE [facility] Comment: This assay is a 4th generation assay allowing for earlier detection of HIV infection by detecting the presence of the HIV-1 p24 antigen as well as the traditional antibodies to HIV type 1 (including group O) and type 2. Use of a 4th generation assay is the current CDC recommendation for HIV screening. Blood specimen (specimen) Blood / Unknown 03/24/2017 2:13 PM EST 03/24/2017 2:24 PM EST Maureen [facility] - 03/24/2017 7:16 PM EST [facility] [employer]™ [address] [place] [id number] [place] ID [id number] ORD# [id number] us [facility] - BLOOD DRAW Final Result [facility] [address] [place] [address], * LIPID PANEL (03/24/2017 2:13 PM EST) CHOLESTEROL 157 0 - 200 mg/dL [facility] TRIGLYCERIDES 131 0 - 150 mg/dL [facility] HDL CHOLESTEROL 51 >40 mg/dL [facility] LDL CALCULATED 80 0 - 100 mg/dL [facility] TC-HDLC RATIO 3.1 0 - 4.4 mg/dL [facility] Blood specimen (specimen) Blood / Unknown 03/24/2017 2:13 PM EST 03/24/2017 2:24 PM EST Narrative [facility] - 03/24/2017 6:28 PM EST [facility] [employer] [address] [place] [address] PT ID [id number] ORD# [id number] us [facility] - BLOOD DRAW Edited Result - Final [facility] [address] [place] [address], * (ABNORMAL) COMPRE METAB PANEL (03/24/2017 2:13 PM EST) GLUCOSE 91 70 - 100 mg/dL [facility] Comment:Reference range appl icable to fasting specimens only BUN 22 5 - 25 mg/dL [facility] CREAT 0.66 0.5 - 1.1 mg/dL [facility] GLOMERULAR FILTRATION RATE > 60 [facility] Comment: If patient is -[place], multiply result by 1.21 Chronic Kidney Disease: < 60 ml/min/1.73 square meters Kidney Failure: < 15 ml/min/1.73 square meters SODIUM 141 133 - 145 mmol/L [facility] POTASSIUM 4.1 3.5 - 5.5 mmol/L [facility] CHLORIDE 106 96 - 110 mmol/L [facility] CO2 28 21 - 32 mmol/L [facility] ANION GAP 7 3 - 11 [facility] CALCIUM 9.0 8.5 - 10.5 mg/dL [facility] TOTAL PROTEIN 7.0 6.0 - 8.0 G/dL [facility] ALBUMIN 3.6 3.2 - 5.0 G/dL [facility] BILI, TOTAL 0.3 0.0 - 1.4 mg/dL [facility] SGOT 19 10 - 42 U/L [facility] SGPT 30 10 - 60 U/L [facility] ALK PHOS 138(H) 42 - 121 U/L [facility] Blood specimen (specimen) Blood / Unknown 03/24/2017 2:13 PM EST 03/24/2017 2:24 PM EST Narrative [facility] - 03/24/2017 6:28 PM EST [facility] [address] [place] [address] PT ID [id number] ORD# [id number] [facility] - BLOOD DRAW Edited Result - Final [facility] [address] [place] [address], from Last 3 Months or Most Recently Relevant to Health Maintenance Insurance [place] MED[place] D[place] Care Teams Health And Physical Education Teacher Relationship Specialty Start Date End Date Bruno Becker MD [address] [place] [address] PCP - General Internal Medicine 04/03/21
--- OUTSIDE RECORDS SUMMARY | 2024-12-30 12:39 | XMS_ITS | Clinical Summary ---
Author Organization [facility] Address [address] [place] [address] Phone Care Team Providers Care Superintendent Maintenance Name Role Phone Javier Mederos HEALTHCARE MARKETER Primary Care Provider Allergies No known active allergies Medications No known medications Active Problems Problem Noted Date Diagnosed Date Renal calculus 08/26/2022 Arthritis of knee 11/26/2021 At increased risk of intimate partner violence 0 11/26/2021 History of appendectomy 11/26/2021 History of total hysterectomy 11/26/2021 Overview (11/26/2021): [place] 2007-unclear reason why, not documented in the record Migraine without aura 11/26/2021 Obese class II 11/26/2021 Thyroid nodule 11/26/2021 Renal stone 04/12/2021 Benign essential hypertension 10/12/2020 Gastroesophageal reflux disease 10/12/2020 Hypertensive disorder 10/12/2020 Depressive disorder 10/12/2020 Overview (11/26/2021): On psych f/u Hypertension 10/12/2020 Obstructive sleep apnea syndrome 03/29/2019 Microscopic hematuria 07/21/2014 Overview (10/12/2020): F/u urology. CT scan abd/pelvis 09/08/13 Multiple nodules of lung 10/07/2013 Overview (11/26/2021): Incidental finding on abd CT September 08, 2013 5 mm subpleural rt lung nodule. Referred CT chest. Chest CT 08/09/14 at [facility] 1. Tiny bilateral pulmonary nodules, all 5 mm or less in diameter, probably benign. Annual screening recommended in 6-12 months. 2. Mildly enlarged, nodular thyroid gland, multinodular goiter. Will refer for thyroid US. Resolved Problems Problem Noted Date Diagnosed Date Resolved Date H/O: urinary stone 10/12/2020 1 Insomnia 10/12/2020 10/12/2020 Overview (10/12/2020): On psych f/u Paronychia 04/11/2020 10/12/2020 Primary osteoarthritis of right knee 09/08/2018 10/12/2020 Overview (10/12/2020): Saw [facility] on 09-01-18 - trial injections. Multinodular goiter 08/25/2014 10/13/19 21 Overview (10/12/2020): CT chest 08/09/14 revealed Mildly enlarged, nodular thyroid gland, multinodular goiter. Will refer for thyroid US. ultrasound of thyroid done 09/15/14 which revealed borderline thyromegaly, indeterminate thyroid nodules and indeterminate dominate partially calcified right thyroid lobe mass with substernal extension; ultrasound-guided tissue sampling may be considered. Will refer to endo. History of Beard's palsy 04/21/201410/03 Overview (10/12/2020): Right x 1, left x 2 Perforation of tympanic membrane 06/30/2013 10/12/2020 Allergic rhinitis 10/28/2012 10/12/2020 Immunizations Immunization Administration Dates Next Due Hep A / Hep B 10/28/2012 Hepatitis B 12/25/2012 Influenza (IM) Preservative Free 01/18/2013 Influenza TIV (IM) 02/28/2014,01/29/2012 Influenza, Quadrivalent, Pre servative Free 03/24/2017 Influenza, Unspecified 03/15/2021,2019,02/18/2019,2014 MMR 05/18/1996,04/12/1996 Td 03/31/1996 Tdap 10/19/2014,09/16/2011 Family History Medical History Relation Comments Heart disease Father Hypertension Father Diabetes Mother Heart disease Mother Hypertension Mother Stroke Mother Hypertension Sibling 1 Kidney disease Sibling 2 Relation Status Comments Father Mother Alive Sibling 1 Sibling 2 Social History Tobacco Use Types Packs/Day Years Used Date Smoking Tobacco: Never Smokeless Tobacco: Never Tobacco Cessation:Counseling Given: Not Answered Alcohol Use Standard Drinks/Week Comments No 0 (1 standard drink = 0.6 oz pur e alcohol) Comments Unknown Sex and Gender Information Value Date Recorded Sex Assigned at Not on file Legal Sex Female 5:05 PM EST Gender Identity Not on file Sexual Orientation Not on file Last Filed Vital Signs Vital Sign Reading Time Taken Comments Blood Pressure 114/80 08/26/2022 1:18 PM EDT Pulse 63 08/26/2022 1:18 PM EDT Temperature - - Respiratory Rate - - Oxygen Saturation 98% 04/12/2021 3:27 PM EST Inhaled Oxygen Concentration - - Weight 103 kg (228 lb) 08/26/2022 1:18 PM EDT Height 160 cm (5' 3 ) 09/06/2019 12:00 PM EDT Body Mass Index 40.39 09/06/2019 12:00 PM EDT Plan of Treatment Health Maintenance Due Date Last Done Comments Breast Cancer Screening 1960 Pneumococcal Vaccine: 50+ Ye ars (1 of 2 - PCV) 12/10/1978 Colorectal Cancer Screening: Annual FOBT 12/10/2008 Colorectal Cancer Screening: Colonoscopy 12/10/2008 Colorectal Cancer Screening: Sigmoidoscopy 12/10/2008 Hepatitis B Vaccine (2 of 3 - Hep B Twinrix 3-dose series) 01/22/2013 12/25/2012, 10/28/2012 Influenza Vaccine (#1) 2025 , 03/09/2020, 02/18/2019, Additional history exists Insurance [facility] Medicaid [facility] Medicaid Care Teams Superintendent Maintenance Relationship Specialty Start Date End Date Javier Mederos NP [address] [place], [place] PCP - General Nurse Practitioner 11/26/21
== END 2024-12-30 11:48 | disposition home or self-care (01) ==
LOC: HO.HKAS 11:19
PROVIDERS: PCP Nurse Practitioner Family; Visit Provider Internal Medicine Nephrology
DX: N20.0 Calculus of kidney (principal); N28.1 Cyst of kidney, acquired
CPT/HCPCS: 99214

== ENCOUNTER → 2024-12-30 11:18 | Outpatient (BNVA) | payer MEDICAID, SELFPAY | PROVIDERS: PCP Nurse Practitioner Family; Visit Provider Internal Medicine Nephrology | DX: N20.0 Calculus of kidney (principal); N28.1 Cyst of kidney, acquired | CPT/HCPCS: 99212 ==